=== PATIENT | male | born 1970 | race Caucasian/White ===

== ENCOUNTER 2018-03-09 18:56 | Emergency (ER) | payer OTHER ==
[2018-03-09 19:00] VITALS: BP 115/81; PULSE 82; TEMP 98.5; BMI 29.9
[2018-03-09] MEDS ORDERED: FLUORESCEIN NA 1 EA STRIP OS ONE (19:39)
--- NOTE | 2018-03-09 19:39 | PDOC ---
History of Present Illness - General Chief Complaint: Eye Problem Stated Complaint: EYE PROBLEM Time Seen by Provider: 03/09/18 19:26 History Source: Patient Exam Limitations: No Limitations - History of Present Illness Initial Comments: 03/09/18 20:12 Patient is a 47-year-old male who presents to the emergency department today for left eye pain. Patient states that he was cleaning the gutters when something came up and flew into his eye. He states that the eye is red. States that he has eye pain. Denies visual changes, spots or floaters, flashing lights , loss of vision, lightheadedness and headache. Past History - Travel Traveled outside of the country in the last 30 days: No Close contact w/someone who was outside of country & ill: No - Past Medical History Allergies/Adverse Reactions: Allergies Allergy/AdvReac Type Severity Reaction Status Date / Time No Known Allergies Allergy Unverified 08/07/14 08:44 Home Medications: Ambulatory Orders Ibuprofen 800 mg PO TID #30 tablet 03/09/18 Ofloxacin 0.3% Ophth Soln [Ocuflox -] 1 drop OP Q2H #100 drops 03/09/18 COPD: No - Suicide/Smoking/Psychosocial Hx Smoking History: Never smoked Hx Alcohol Use: Yes Substance Use Type: None Review of Systems - Review of Systems Able to Perform ROS?: Yes Comments:: 03/09/18 20:03 CONSTITUTIONAL: Absent: fever, chills, diaphoresis, generalized weakness, malaise, loss of appetite HEENT: Present: eye pain Absent: rhinorrhea, nasal congestion, throat pain, throat swelling, difficulty swallowing, mouth swelling, ear pain, visual Changes SKIN: Absent: rash, itching, pallor NEUROLOGIC: Absent: headache, focal weakness or paresthesias, dizziness, unsteady gait, seizure, mental status changes, bladder or bowel incontinence PSYCHIATRIC: Absent: anxiety, depression, suicidal or homicidal ideation, hallucinations. Is the patient limited Yoruba proficient: No *Physical Exam - Vital Signs Last Vital Signs Temp Pulse Resp BP Pulse Ox 98.5 F 82 18 115/81 97 03/09/18 18:59 03/09/18 18:59 10 18:59 10 18:59 03/09/18 18:59 - Physical Exam Comments: 03/09/18 20:03 GENERAL: The patient is awake, alert, and fully oriented, in no acute distress. HEAD: Normal with no signs of trauma. EYES: Pupils equal, round and reactive to light, extraocular movements intact, sclera anicteric, R conjunctiva clear. L conjuntiva with subconjunctivae hemorrhage to the medial of the eye. Fluorescein stain of the left eye shows an abrasion of the 7:00 area of the left eye. EXTREMITIES: Normal range of motion, no edema NEUROLOGICAL: Normal speech, normal gait. PSYCH: Normal mood, normal affect. SKIN: Warm, Dry, normal turgor, no rashes or lesions noted. Medical Decision Making - Medical Decision Making 03/09/18 20:16 Patient is a 47-year-old male who presents to the emergency department today with left eye pain and redness after having a foreign body fly into the eye. -No foreign body noted on exam. There is subconjunctival hemorrhage of the left medial eye. Positive fluorescein stain. -Visual acuity 20 /20 , OD, OS, both eyes. -Most likely a corneal abrasion. -Treat with eye drops and ophtho follow-up -I discussed the physical exam findings, ancillary test results and final diagnoses with the patient. I answered all of the patient's questions. The patient was satisfied with the care received and felt comfortable with the discharge plan and treatment plan. The Patient agrees to follow up with the primary care physician/specialist within 24-72 hours. Return precautions were given. *DC/Admit/Observation/Transfer Diagnosis at time of Disposition: Corneal abrasion Qualifiers: Encounter type: initial encounter Laterality: left Qualified Code(s): S05.02XA - Injury of conjunctiva and corneal abrasion without foreign body, left eye, initial encounter - Discharge Dispostion Disposition: HOME Condition at time of disposition: Stable Decision to Admit order: No - Prescriptions Prescriptions: Ibuprofen 800 mg PO TID #30 tablet Ofloxacin 0.3% Ophth Soln [Ocuflox -] 1 drop OP Q2H #100 drops - Referrals Referrals: Aishwarya Hercules MD [Primary Care Provider] - - Patient Instructions Printed Discharge Instructions: DI for Corneal Abrasion Additional Instructions: You have a scratch on your eye or corneal abrasion. Please use the eyedrops as directed for one week. A prescription as been sent to your pharmacy. You may take Motrin as needed for pain. Follow the direction on the bottle. Follow-up with an numerical analysis group manager in 1 week. A referral has been provided. Return to the emergency department if you have worsening pain, visual changes, seeing spots or floaters, or if you have any changes in your symptoms. Tienes un rasguo en el reuben o abrasin corneal. Por favor, use las gotas para los ojos alex se indica bernie maria esther semana. Maria Esther receta alex duckworth sido enviada a marquez farmacia. Puede tyson Motrin segn sea necesario para el dolor. Siga la direccin en la botella. Seguimiento con un oftalmlogo en 1 semana. Se duckworth proporcionado maria esther referencia. Regrese al departamento de emergencias si tiene un dolor que empeora, cambios visuales, manchas o flotadores, o si tiene algn cambio en michael sntomas. Print Language: SETSWANA - Post Discharge Activity
[2018-03-09] MEDS ORDERED: TETRACAINE 0.5% OPHTH SOLN 2 ML BOTTLE OS ONE (19:40)
[2018-03-09] MEDS ORDERED: FLUORESCEIN NA 1 EA STRIP ONE (19:57)
[2018-03-09] MEDS ORDERED: TETRACAINE 0.5% OPHTH SOLN 2 ML BOTTLE ONE (19:57)
== END 2018-03-09 20:24 | disposition home or self-care (01) ==
LOC: JERFT 18:56
DX: S05.02XA Injury of conjunctiva and corneal abrasion without foreign body, left eye, initial encounter (principal); W22.8XXA Striking against or struck by other objects, initial encounter; Y93.89 Activity, other specified; Y92.89 Other specified places as the place of occurrence of the external cause; Y99.8 Other external cause status; H11.32 Conjunctival hemorrhage, left eye
CPT/HCPCS: 99281-25

== ENCOUNTER 2024-04-13 06:45 | Emergency (ER) | payer OTHER ==
[2024-04-13 06:56] VITALS: BP 139/85; PULSE 101; RESP 18; TEMP 97.9; BMI 29.9
[2024-04-13] MEDS ORDERED: ACETAMINOPHEN INJECTION 100 ML ONE (08:40)
[2024-04-13] MEDS: ACETAMINOPHEN 1000 MG/100 ML BAG IVPB ONE (08:42)
[2024-04-13 08:58] LABS: BASO % 0.4 % (0-2.0); EOS % 0.8 % (0-4.5); HEMATOCRIT 44.9 % (35.4-49); INR 1.07 (0.83-1.09); MCH 29.3 pg (25.7-33.7); MCHC 33.3 g/dl (32.0-35.9); MEAN CELL VOLUME 87.9 fl (80-96); MEAN PLT VOLUME 9.2 fl (7.5-11.1); MONO % 8.7 % (3.8-10.2); NEUT % 54.1 % (42.8-82.8); PLATELET COUNT 212 10^3/uL (134-434); PROTHROMBIN TIME (PATIENT) 12.1 SEC (9.7-13.0); RBC 5.11 M/mm3 (4.00-5.60); RDW 13.8 % (11.9-15.9); WHITE BLOOD COUNT 7.9 K/mm3 (4.0-10.0)
[2024-04-13 09:01] LABS: ACTIVATED PTT 35.3 SECONDS (25.2-36.5)
[2024-04-13 09:09] LABS: POTASSIUM 4.4 mmol/L (3.5-5.1)
[2024-04-13 09:11] LABS: ALBUMIN 3.8 g/dl (3.4-5.0); BLOOD UREA NITROGEN 16.1 mg/dL (7-18); CALCIUM 9.1 mg/dL (8.5-10.1)
[2024-04-13 09:15] LABS: CREATININE 1.2 mg/dL (0.55-1.3)
[2024-04-13 09:16] LABS: BILIRUBIN,TOTAL 0.4 mg/dL (0.2-1); TOT PROT 7.3 g/dl (6.4-8.2)
== END 2024-04-13 10:59 | disposition home or self-care (01) ==
LOC: JER 06:45
PROC: 3E033NZ Introduction of Analgesics, Hypnotics, Sedatives into Peripheral Vein, Percutaneous Approach (ICD-10-PCS; principal; 2024-04-13)
DX: R07.9 Chest pain, unspecified (principal)
CPT/HCPCS: 36415; 71046-TC-FY; 80053; 84484; 85025; 85610; 85730; 93005; 93010; 99285-25; J0131